=== PATIENT | male | born 1940 | race Caucasian/White ===

== ENCOUNTER 2017-02-26 04:25 | Emergency (ER) | payer OTHER ==
[~2017-02-26] VITALS: Ht 175.3 cm; Wt 83.9 kg
[~2017-02-26 04:25] MED LIST: CHERATUSSIN AC118 M1 PO; TESSALON PERLE100 M1 PO; ZITHROMAX500 M2 PO
[2017-02-26 04:36] VITALS: BP 168/78
--- NOTE | 2017-02-26 04:51 | ED GI/GU/ABDOMINAL COMPLAINT ---
History of Present Illness General Chief Complaint: General Adult Stated Complaint: SEEN HERE EARLIER, NAUSEA, VOMITING PER PT Source: patient, family, old records Exam Limitations: no limitations Vital Signs & Intake/Output Vital Signs & Intake/Output Vital Signs Date Time Temp Pulse Resp B/P B/P Pulse O2 O2 Flow FiO2 Mean Ox Delivery Rate 02/26 0438 95 Room Air 02/27 436 98.2 72 20 168/78 95 Room Air Allergies Coded Allergies: No Known Allergies (02/25/17) Reconcile Medications Azithromycin (Zithromax) 500 MG TABLET 1 TAB PO DAILY BRONCHITIS Benzonatate (Tessalon Perle) 100 MG CAPSULE 1 CAP PO TID PRN COUGH Codeine Phosphate/Guaifenesi (Cheratussin AC Syrup) 10 MG-100 MG/5 ML LIQUID 10 ML PO QPM PRN COUGH Ondansetron (Zofran Odt) 4 MG TAB.RAPDIS 1 TAB PO Q6 PRN NAUSEA Triage Note: PT FROM HOME C/O N/V. PT STATES HE WAS SEEN HERE 2 HRS PRIOR DIAGNOSED WITH BRONCHITIS AND SENT HOME WITH GUADALUPE WEBSTER AND PT STATES HE HAS BEEN VOMITTING EVER SINCE. PT IN TRIAGE THEN STATES "WELL ITS ALL FLEM I HAVE NOTHING LEFT IN MY STOMACH, JUST GIVE ME A SHOT FOR NAUSEA" PT TO RM 1 AWAITING PROVIDER EVAL Triage Nurses Notes Reviewed? yes Onset: Abrupt Duration: minute(s): (FEW) Timing: single episode today Activities at Onset: TOOK MULTIPLE MEDICATIONS No Modifying Factors: none HPI: 77 year old male presents with after vomiting clear phlegm just prior to arrival. Patient was just here earlier and diagnosed with bronchitis. He went home took azithromycin, Tessalon Perles and drank Robitussin with codeine. Shortly after that he started to feel nauseous and started to dry heave. Patient just vomited up some clear phlegm. Denies any chest pain or shortness of breath. He was given a dose of ODT Zofran upon arrival to the ER. Patient states that he is exhausted and would just like to go home at this time. Past History Travel History Traveled to [place] past 21 day No Medical History Any Pertinent Medical History? see below for history Cardiovascular: hypertension, hyperlipidemia Musculoskeletal: gout Endocrine: diabetes Surgical History Surgical History: non-contributory Psychosocial History What is your primary language Citizen [place] Tobacco Use: Never used Family History Hx Contributory? No Review of Systems Review of Systems Constitutional: Denies: chills, fever. EENTM: Reports: no symptoms. Respiratory: Reports: cough. Cardiovascular: Reports: no symptoms. GI: Reports: nausea, vomiting. Genitourinary: Denies: discharge, dysuria. Musculoskeletal: Reports: no symptoms. Skin: Reports: no symptoms. Neurological/Psychological: Reports: no symptoms. Hematologic/Endocrine: Denies: bruising, bleeding. Immunologic/Allergic: Reports: no symptoms. All Other Systems: Reviewed and Negative Physical Exam Physical Exam General Appearance: well developed/nourished, alert, awake, mild distress Head: atraumatic, normal appearance Eyes: Bilateral: EOMI. Ears, Nose, Throat, Mouth: hearing grossly normal, moist mucous membrane Neck: normal inspection, supple, full range of motion Respiratory: normal breath sounds, chest non-tender, quiet respiration Cardiovascular: regular rate/rhythm Peripheral Pulses: 2+ radial (R), 2+ radial (L) Gastrointestinal: soft, non-tender Back: normal inspection, normal range of motion Neurologic/Psych: awake, alert, oriented x 3 Skin: intact, normal color, warm/dry Core Measures ACS in differential dx? No Severe Sepsis Present: No Septic Shock Present: No Progress Differential Diagnosis: medication side effect, diverticulitis Plan of Care: Current Medications Sig/Robert Start time Last Medication Dose Stop Time Status Admin Ondansetron HCl 4 MG ONCE ONE 02/26 0500 UNVr 02/26 (Zofran) 02/26 0501 0458 Ondansetron HCl 4 MG ONCE ONE 02/26 0500 UNVr 02/26 (Zofran) 02/26 0501 0458 Initial ED EKG: none Departure Departure Time of Disposition: 0500 Disposition: HOME OR SELF CARE Condition: Stable Clinical Impression Primary Impression: Medication reaction Referrals: VIVIAN BARCENAS,VISHAL Newton (PCP/Family) Additional Instructions: TAKE THE ZOFRAN NEEDED FOR NAUSEA. SEE YOUR DOCTOR IN THE OFFICE. CONTINUE YOUR MEDICATIONS. RETURN NEEDED. Departure Forms: Customer Survey General Discharge Information Prescriptions: Current Visit Scripts Ondansetron (Zofran Odt) 1 TAB PO Q6 PRN NAUSEA #10 TAB
[2017-02-26] MEDS ORDERED: ZOFRAN ODT4 M1 PO (04:57)
== END 2017-02-26 05:06 ==
LOC: ERH 04:25
DX: T50.995A Adverse effect of other drugs, medicaments and biological substances, initial encounter (principal)
CPT/HCPCS: J3101